=== PATIENT | female | born 1985 | race Caucasian/White ===

== ENCOUNTER 2017-12-12 08:45 | Observation (INO) ==
[2017-12-12] MEDS ORDERED: Morphine Sulfate Inj 2 MG/ML Vial IV.PUSH PRN (13:19)
[2017-12-12] MEDS ORDERED: Sod Chloride 0.9% Inj 1,000 ML IV.CONT SCH (13:30)
--- NOTE | 2017-12-12 13:55 | P.HPGS ---
History of Present Illness Service: Admission NOTE FOR SURGICAL ATTENDING, DR. PORFIRIO FAY General Surgery Primary Care Physician: Tulio Chavis Chief Complaint: Abdominal pain History of Present Illness: This is a 32 year old female with a history of PCOS who presented to the [place] ED with complaints on periumbilical pain that has now radiated to her RLQ. She does reports associated nausea without vomiting. She reports chills. A CT abdomen/pelvis was obtained which shows acute appendicitis. The patient has been transferred to the [facility] for General Surgery consultation and surgical intervention. - Diagnosis (1) Acute appendicitis Review of Systems All other systems reviewed negative except as stated in HPI PMFSH - History History Provided By: Patient - Medical History Medical History: Medical History (Last Reviewed 12/12/17 @ 17:28 by Porfirio Fay MD) Hyperlipidemia PCOS (polycystic ovarian syndrome) - Surgical History Surgical History: Surgical History (Last Reviewed 12/12/17 @ 17:28 by Porfirio Fay MD) History of bilateral tubal ligation - Social History I have reviewed the patient's Social History: Yes - Tobacco History Smoking Status: Never smoker - Alcohol History How Often Do You Have a Drink Containing Alcohol: Never - Substance Use History Substance History: No History of Abuse Medications and Allergies Allergies Allergy/AdvReac Type Severity Reaction Status Date / Time No Known Allergies Allergy Verified 12/12/17 09:10 Home Medications Medication Instructions Recorded Confirmed Type Control Pill 1 tab PO DAILY 12/12/17 History simvastatin 20 mg PO QPM 12/12/17 12/12/17 History Active Medications: Active Medications Sodium Chloride (Ns Inj) 1,000 mls @ 125 mls/hr IV.CONT .Q8H VICENTE Piperacillin/Tazobactam/Dextrose (Zosyn 3.375 Gm Premix) 50 mls @ 100 mls/hr IV.SIG Q6H VICENTE Morphine Sulfate (Morphine Inj) 2 mg IV.PUSH Q6H PRN PRN Reason: PAIN 1-10 AND/OR FEVER >101F Sodium Chloride (Ns Flush) 2 ml IV.FLUSH BID VICENTE Sodium Chloride (Ns Flush) 2 ml IV.FLUSH PRN PRN PRN Reason: FLUSH AFTER USING IV ACCESS Exam Narrative: GENERAL: Very pleasant 32 year old female resting in bed in no acute distress. SKIN: Warm and dry. HEAD: Atraumatic. Normocephalic. EYES: Pupils equal and round. No scleral icterus. No injection or drainage. ENT: No nasal bleeding or discharge. Mucous membranes pink and moist. NECK: Trachea midline. CARDIOVASCULAR: Regular rate and rhythm. RESPIRATORY: No accessory muscle use. Clear to auscultation. Breath sounds equal bilaterally. GASTROINTESTINAL: Abdomen soft, nondistended; obese abdomen. RLQ tenderness with palpation. Very faint low laparoscopic scars. MUSCULOSKELETAL: Extremities without clubbing, cyanosis, or edema. No obvious deformities. NEUROLOGICAL: Awake and alert. No obvious cranial nerve deficits. Motor grossly within normal limits. Five out of 5 muscle strength in the arms and legs. Normal speech. PSYCHIATRIC: Appropriate mood and affect; insight and judgment normal. Results - Labs Labs were done at [facility] facility - Imaging CT scan - abdomen: image reviewed Additional studies: FINDINGS: Lower Lungs: The visualized lower lungs are clear. Liver: The liver has a homogeneous density without space-occupying lesion. There is no dilation of the biliary tree. Spleen: Homogeneous density without enlargement. Pancreas: Unremarkable without mass or calcification. Kidneys: Normal in size and shape. No evidence of mass or hydronephrosis. Adrenal Glands: Unremarkable. Aorta: The aorta and proximal iliac vessels are grossly unremarkable without aneurysmal dilation. Bowel/Mesentery: The bowel there is a small appendicolith. There is some inflammation around the appendix and the appendix does appear slightly fluid filled proximally concerning for early appendicitis Abdominal Wall: Small fat-containing hernia adjacent to the umbilicus superiorly Retroperitoneum: No evidence of adenopathy in the retrocrural, para-aortic, or deep pelvic regions. Bladder: Contours are smooth. Reproductive Organs: No abnormal masses or calcifications seen. Inguinal: The inguinal region is unremarkable without evidence of adenopathy. Bony Structures: Unremarkable. CONCLUSION: 1. The scan is positive for appendicitis. The appendix originates from the inferior tip of the cecum and extends inferiorly. No evidence of rupture. Caprini VTE Risk Assessment Caprini VTE Risk Assessment: No/Low Risk (score <= 1) VTE Pharmacological Exception Reason: Documented (Going to OR today ) Caprini Risk Assessment Model: Point Value = 1 Point Value = 2 Point Value = 3 Point Value = 5 Age 41-60 Minor surgery BMI > 25 kg/m2 Swollen legs Varicose veins or History of unexplained or recurrent spontaneous Oral contraceptives or hormone replacement Sepsis (< 1 month) Serious lung disease, including pneumonia (< 1 month) Abnormal pulmonary function Acute myocardial infarction Congestive heart failure (< 1 month) History of inflammatory bowel disease Medical patient at bed rest Age 61-74 Arthroscopic surgery Major open surgery (> 45 min) Laparoscopic surgery (> 45 min) Malignancy Confined to bed (> 72 hours) Immobilizing plaster cast Central venous access Age >= 75 History of VTE Family history of VTE Factor V Leiden Prothrombin [id number] Lupus anticoagulant Anticardiolipin antibodies Elevated serum homocysteine Heparin-induced thrombocytopenia Other congenital or acquired thrombophilia Stroke (< 1 month) Elective arthroplasty Hip, pelvis, or leg fracture Acute spinal cord injury (< 1 month) Prophylaxis Regimen: Total Risk Factor Score Risk Level Prophylaxis Regimen 0-1 Low Early ambulation 2 Moderate Order ONE of the following: *Sequential Compression Device (SCD) *Heparin 5000 units SQ BID 3-4 Higher Order ONE of the following medications: *Heparin 5000 units SQ TID *Enoxaparin/Lovenox 40 mg SQ daily (WT < 150 kg, CrCl > 30 mL/min) *Enoxaparin/Lovenox 30 mg SQ daily (WT < 150 kg, CrCl > 10-29 mL/min) *Enoxaparin/Lovenox 30 mg SQ BID (WT < 150 kg, CrCl > 30 mL/min) AND/OR *Sequential Compression Device (SCD) 5 or more Highest Order ONE of the following medications: *Heparin 5000 units SQ TID (Preferred with Epidurals) *Enoxaparin/Lovenox 40 mg SQ daily (WT < 150 kg, CrCl > 30 mL/min) *Enoxaparin/Lovenox 30 mg SQ daily (WT < 150 kg, CrCl > 10-29 mL/min) *Enoxaparin/Lovenox 30 mg SQ BID (WT < 150 kg, CrCl > 30 mL/min) AND *Sequential Compression Device (SCD) Assessment and Plan - Assessment (1) Acute appendicitis Code(s): K35.80 - Unspecified acute appendicitis Status: Acute Qualifiers: Acute appendicitis type: with localized peritonitis Appendicitis perforation presence: without perforation Plan: 32 year old female with acute appendicitis -Plan for laparoscopic appendectomy; possible open procedure this afternoon with Dr. Fay -NPO -IVF -Zosyn -Morphine available PRN -Discussed procedure including risks and benefits; all questions answered - Plan Discussed Condition With: Dr. Sumeet Troncoso - Attending Attestation ADMISSION NOTE FOR SURGICAL ATTENDING, DR. PORFIRIO FAY Patient has classic history of appendicitis with classic physical exam for appendicitis confirmed with radiologic imaging I agree with above assessment and plan. The exam, history, and the medical decision-making described in the above note were completed with the assistance of the mid-level provider. I reviewed and agree with the findings presented. I attest that I had a [id number] encounter with the patient on the same day, and personally performed and documented my assessment and findings in the medical record. The following services were provided during this hospital visit: Chart data review, vital sign assessments/reviewing monitor data Review of consultations notes if present. Medication orders/review and/or management Ordering and/or reviewing lab tests Ordering and/or interpreting/reviewing x-rays and/or diagnostic studies Care of the patient and discussion of the patient with the care team Documentation time To help prompt me to consider important information that might be impacting today's encounter and assessment, Information from prior notes written by myself or my colleagues may have been "brought forward/copy and pasted" into today's note.
[2017-12-12] MEDS: Piperacil/Tazo 3.375 GM Premix 50 ML IV.SIG SCH ×2 (14:00→20:55)
[2017-12-12] MEDS ORDERED: Bupivacaine/Epinephrine PF Inj 0.5% 30 ML Vial ONE (16:40)
[2017-12-12] MEDS ORDERED: Neostigmine Inj 5 MG/5 ML Syringe IV.PUSH ONE (17:17)
[2017-12-12] MEDS ORDERED: Glycopyrrolate Inj 1 MG/5 ML Syringe IV.PUSH ONE (17:17)
[2017-12-12] MEDS ORDERED: Lidocaine PF 1% Inj 5 ML Syringe OTHER ONE (17:17)
[2017-12-12] MEDS ORDERED: Famotidine PF Inj 20 MG/2 ML Vial ONE (17:21)
[2017-12-12] MEDS ORDERED: Ketorolac Inj 30 MG/ML (IVP) Vial IV.PUSH ONE (18:29)
[2017-12-12] MEDS ORDERED: fentaNYL Citrate Inj 100 MCG/2 ML Ampul ONE (18:38)
[2017-12-12] MEDS ORDERED: Ketorolac Inj 30 MG/ML (IVP) Vial ONE (18:57)
--- NOTE | 2017-12-12 19:24 | MP ---
cc: Porfirio Fay MD, Joseph D MD DATE OF OPERATION: 12/12/2017 PREOPERATIVE DIAGNOSIS: Acute appendicitis. POSTOPERATIVE DIAGNOSIS: Acute appendicitis. PROCEDURE PERFORMED: Laparoscopic appendectomy. ANESTHESIA: General. SURGEON: Porfirio Fay MD INDICATIONS: The patient is a pleasant 32-year-old female who was seen at an outside ER, was found to have classic signs and symptomatology consistent with appendicitis. Plans were made for the above. DESCRIPTION OF PROCEDURE: The patient was taken to the operating room, placed in the supine position. After anesthesia, her abdomen was prepped with Betadine. Timeout was done. She had already gotten preoperative antibiotics. We make an incision above the umbilicus. Veress needle was inserted a saline load test was performed and the abdomen insufflated with 15 mmHg. A 10-mm trocar was introduced. Two other 5 mm trocars were placed in the midline. The appendix was obviously inflamed. We take down the mesentery of the appendix with the Harmonic scalpel down the base of the appendix. Two Endo ties PDS were then placed around the base of the appendix and tied off and the appendix is amputated, placed in an Endo Catch and pulled out through the umbilical incision and passed off the field. We then irrigated some cloudy fluid down the pelvis. Both ovaries are seen. She has a history of polycystic ovarian syndrome. She is status post a tubal ligation. Gallbladder looks normal ,liver normal, no other gross abnormalities seen. The trocars were then removed. The fascial layer at the umbilicus was closed with 0 Vicryl and skin was closed at all 3 sites with 4-0 Vicryl, Steri-Strips applied, sterile bandage was applied. The patient tolerated the procedure well with no immediate postop complication. Porfirio Fay MD JDB/shayy , 06:25 PM , 06:31 PM
[2017-12-13] MEDS ORDERED: [UNRECOGNIZED DRUG - REMARK] PO SCH (09:00)
== END 2017-12-12 22:10 | disposition home or self-care (01) ==
LOC: NEDDLT 08:45 → NEPHCDU 08:45
PROVIDERS: ADMIT Surgery; ATTEND Surgery
PROC: LAPAPPY (ICD-10-PCS; 2017-12-12 17:17)